=== PATIENT | female | born 1955 | race Hispanic/Latino ===

== ENCOUNTER 2017-12-07 06:41 | Emergency (ER) | payer BC ==
[~2017-12-07] VITALS: Ht 157.5 cm; Wt 90.7 kg
[2017-12-07] MEDS ORDERED: NIFEDIPINE 10 MG CAP SL ONE (08:15)
[2017-12-07 09:51] VITALS: BP 136/65
== END 2017-12-07 09:58 | disposition home or self-care (01) ==
LOC: ER 06:41
DX: I10 Essential (primary) hypertension (principal); E11.9 Type 2 diabetes mellitus without complications; E03.9 Hypothyroidism, unspecified
CPT/HCPCS: 93005; 99282